=== PATIENT | male | born 1955 | race Caucasian/White ===

== ENCOUNTER 2019-04-16 10:55 | Inpatient (IN) | payer OTHER ==
--- NOTE | 2019-04-16 16:14 | BHS.RME ---
Substance Use & Tx History - Substance Use History Alcohol Substance amount: 2 pints vodka Frequency of use: Daily Substance route: Oral Date of Last Use: 04/16/19 (8 a.m.) - Last Treatment Date of last treatment: 1999 Treatment type: Substance Use Disorder ([place]) Where was last treatment: Detox (For cocaine, heroin, marijuana, alcohol) Physical/Psych/Mental Status - Behavior Eye Contact: Decreased - Cooperativeness Cooperativeness: Hostile - Thinking Perceptions: Hallucinations (auditory, visual, olfactory) (States hears things at night but unable to determine what is being said) - Physical Health Problems Is patient presently having any pain?: Yes (Generalized arthritis ) Does patient presently have any injuries (include location): No Does patient currently have a fever: No Is patient : No CIWA Nausea/Vomitin-No Nausea/No Vomiting Muscle Tremors: 4-Moderate,w/Arms Extend Anxiety: 3 Agitation: 2 Paroxysmal Sweats: 1-Minimal Palms Moist Orientation: 1-Uncertain about Date Tacttile Disturbances: 0-None Auditory Disturbances: 0-None Visual Disturbances: 0-None Headache: 0-None Present CIWA-Ar Total Score: 11
[2019-04-16 16:47] VITALS: BMI 27.8
--- NOTE | 2019-04-16 16:53 | HP ---
CIWA Score Nausea/Vomitin-No Nausea/No Vomiting Muscle Tremors: 4-Moderate,w/Arms Extend Anxiety: 3 Agitation: 2 Paroxysmal Sweats: 1-Minimal Palms Moist Orientation: 1-Uncertain about Date Tacttile Disturbances: 0-None Auditory Disturbances: 0-None Visual Disturbances: 0-None Headache: 0-None Present CIWA-Ar Total Score: 11 - Admission Criteria OASAS Guidelines: Admission for Medically Managed Detox: Requires at least one of the followin. CIWA greater than 12 2. Seizures within the past 24 hours 3. Delirium tremens within the past 24 hours 4. Hallucinations within the past 24 hours 5. Acute intervention needed for co occurring medical disorder 6. Acute intervention needed for co occurring psychiatric disorder 7. Severe withdrawal that cannot be handled at a lower level of care (continued vomiting, continued diarrhea, abnormal vital signs) requiring intravenous medication and/or fluids 8. Patient presents the following: Acute intervention needed for co-occurring med or psych disorder Admission Criteria Met: Admission criteria met Admission ROS S - HPI Chief Complaint: I am here because I don't want to drink anymore and I don't feel good Allergies/Adverse Reactions: Allergies Allergy/AdvReac Type Severity Reaction Status Date / Time No Known Allergies Allergy Verified 04/16/19 16:36 History of Present Illness: Patient is a 63 year old man with alcoholism who presents for detox from alcohol. Patient reports he went to [facility] yesterday for detox but they referred him to [facility]. Patient reports he has been having hallucinations; hears voices and sees people walking at night, he is unable to tell what the voices say. As per patient, this has been going on for a while, he was previously followed by psych but according to him, nothing was done. Patient has unstable gait and walks with a cane. Patient has risk for falls, fall prevention protocol implemented. On admission, his blood glucose level not registering on glucometer, insulin 12 units ordered. Exam Limitations: No Limitations - Ebola screening Have you traveled outside of the country in the last 21 days: No Have you had contact with anyone from an Ebola affected area: No Have you been sick,other than usual withdrawal symptoms: No Do you have a fever: No - Review of Systems Constitutional: Loss of Appetite, Night Sweats EENT: reports: Blurred Vision Respiratory: reports: SOB with Exertion Cardiac: reports: Edema GI: reports: Nausea, Poor Appetite, Poor Fluid Intake, Abdominal cramping : reports: No Symptoms Reported Musculoskeletal: reports: Back Pain, Joint Pain, Joint Swelling, Muscle Pain, Muscle Weakness Integumentary: reports: Sweating Neuro: reports: Numbness, Tremors, Weakness Endocrine: reports: No Symptoms Reported Hematology: reports: No Symptoms Reported Psychiatric: reports: Anxious, Depressed Other Systems: Reviewed and Negative Patient History - Patient Medical History Hx Anemia: No Hx Asthma: Yes Hx Chronic Obstructive Pulmonary Disease (COPD): No Hx Cancer: No Hx Cardiac Disorders: No Hx Congestive Heart Failure: No Hx Hypertension: Yes Hx Hypercholesterolemia: Yes Hx Pacemaker: No HX Cerebrovascular Accident: No Hx Seizures: No Hx Dementia: No Hx Diabetes: Yes Hx Gastrointestinal Disorders: No Hx Liver Disease: No Hx Genitourinary Disorders: No Hx Sexually Transmitted Disorders: No Hx Renal Disease (ESRD): No Hx Thyroid Disease: No Hx Human Immunodeficiency Virus (HIV): No Hx Hepatitis C: No Hx Depression: Yes Hx Suicide Attempt: Yes (remote hx) Hx Bipolar Disorder: Yes Hx Schizophrenia: No - Patient Surgical History Past Surgical History: No Hx Neurologic Surgery: No Hx Cataract Extraction: No Hx Cardiac Surgery: No Hx Lung Surgery: No Hx Breast Surgery: No Hx Breast Biopsy: No Hx Abdominal Surgery: Yes Hx Appendectomy: No Hx Cholecystectomy: Yes Hx Genitourinary Surgery: No Hx Orthopedic Surgery: Yes (left great toe amputation) Anesthesia Reaction: No - PPD History Previous Implant?: Yes Documented Results: Negative w/o proof Implanted On Prior R Admission?: No PPD to be Administered?: Yes - Smoking Cessation Smoking history: Former smoker Have you smoked in the past 12 months: No If you are a former smoker, when did you quit?: 15 years ago Hx Chewing Tobacco Use: No Initiated information on smoking cessation: No - Substances abused Alcohol Substance route: Oral Frequency: Daily Amount used: 2 PINTS Age of first use: 17 Date of last use: 04/16/19 Admission Physical Exam BHS - Vital Signs Vital Signs: Vital Signs - 24 hr 04/16/19 16:34 Temperature 97 F L Pulse Rate 102 H Respiratory 17 Rate Blood Pressure 147/90 - Physical General Appearance: Yes: Mild Distress HEENTM: Yes: Hearing grossly Normal, Normal Voice, Other (upper and lower dentures) Respiratory: Yes: Chest Non-Tender, Lungs Clear, No Accessory Muscle Use Neck: Yes: No masses,lesions,Nodules, Supple Breast: Yes: Breast Exam Deferred Cardiology: Yes: Regular Rhythm, Regular Rate Abdominal: Yes: Normal Bowel Sounds, Non Tender, Other (umbilical hernia) Genitourinary: Yes: Within Normal Limits Back: Yes: Decreased Range of Motion Musculoskeletal: Yes: Back pain, Joint swelling, Muscle Pain, Muscle weakness Extremities: Yes: Tremors, Pedal Edema, Swelling, Amputation Neurological: Yes: Fully Oriented, Alert, Normal Response, Numbness, Other (unsteady gait) Integumentary: Yes: Moist Lymphatic: Yes: Within Normal Limits - Diagnostic (1) Alcohol dependence, uncomplicated Current Visit: Yes Status: Acute (2) HTN (hypertension) Current Visit: Yes Status: Chronic Qualifiers: Hypertension type: essential hypertension Qualified Code(s): I10 - Essential (primary) hypertension (3) Diabetes Current Visit: Yes Status: Acute Qualifiers: Diabetes mellitus type: type 2 Diabetes mellitus manager terminal insulin use: with manager terminal use Diabetes mellitus complication status: with circulatory complication Diabetes mellitus complication detail: with other circulatory complications Qualified Code(s): E11.59 - Type 2 diabetes mellitus with other circulatory complications; Z79.4 - skilled nursing (current) use of insulin (4) Asthma Current Visit: Yes Status: Chronic Qualifiers: Asthma severity: mild Asthma persistence: intermittent (5) Umbilical hernia Current Visit: Yes Status: Chronic Qualifiers: Obstruction and gangrene presence: without obstruction or gangrene Qualified Code(s): K42.9 - Umbilical hernia without obstruction or gangrene (6) Need for assistance due to unsteady gait Current Visit: Yes Status: Chronic Cleared for Admission [facility] - Detox or Rehab [facility] Level of Care: Medically Managed Detox Regimen/Protocol: Librium Claeared for Rehab Admission: No Breathalyzer - Breathalyzer Breathalyzer: 0 Urine Drug Screen - Test Device Lot number: [id number] Expiration date: 01/07/21 - Control Is test valid?: Yes - Results Drug screen NEGATIVE: Yes Inpatient Rehab Admission - Rehab Decision to Admit Inpatient rehab admission?: No
[2019-04-16] MEDS ORDERED: BISMUTH SUBSALICYLATE 524 MG/30 ML UD PO PRN (17:09)
[2019-04-16] MEDS ORDERED: MAG HYDROX/AL HYDROX/SIMETH 30 ML UNIT-DOSE CUP PO PRN (17:09)
[2019-04-16] MEDS ORDERED: METHOCARBAMOL 500 MG TABLET PO PRN (17:09)
[2019-04-16] MEDS ORDERED: MAGNESIUM HYDROX 2400MG/30ML ORAL SUSPENSION 30 ML CUP PO PRN (17:09)
[2019-04-16] MEDS ORDERED: ONDANSETRON *ODT* 4 MG TABLET SL ONE (17:09)
[2019-04-16] MEDS ORDERED: MENTHOL/PHENOL 1 EACH UD MM PRN (17:09)
[2019-04-16] MEDS ORDERED: ACETAMINOPHEN 325 MG TABLET (FP) PO PRN ×2 (17:09)
[2019-04-16] MEDS ORDERED: IBUPROFEN 400 MG TABLET (FP) PO PRN (17:09)
[2019-04-16] MEDS ORDERED: chlordiazePOXIDE HCL 10 MG CAPSULE PO PRN (17:09)
[2019-04-16] MEDS ORDERED: MAGNESIUM CITRATE 300 ML BOTTLE PO PRN (17:09)
[2019-04-16] MEDS ORDERED: ALBUTEROL SO4 8 GM HFA INHALER IH SCH (17:15)
[2019-04-16] MEDS ORDERED: INSULIN (NOVOLOG) ASPART 100 UNITS/ML 10ML VIAL SQ ONE (17:27)
[2019-04-16] MEDS ORDERED: INSULIN SLIDING SCALE (NOVOLOG) 1 VIAL SQ ONE (18:11)
[2019-04-16] MEDS: hydrOXYzine PAMOATE 25 MG CAPSULE (FP) PO SCH ×2 (18:22→22:24)
[2019-04-16] MEDS: INSULIN SLIDING SCALE (NOVOLOG) 1 VIAL SQ SCH (21:32)
[2019-04-16] MEDS: INSULIN (LEVEMIR) 100 UNITS/ML UNITS SQ SCH (21:33)
[2019-04-16] MEDS: chlordiazePOXIDE HCL 25 MG CAPSULE PO SCH (22:24)
[2019-04-16] MEDS: THIAMINE HCL 100 MG TABLET (FP) PO SCH (22:24)
[2019-04-16] MEDS: MELATONIN 5 MG TABLETS PO SCH (22:24)
[2019-04-17] MEDS: hydrOXYzine PAMOATE 25 MG CAPSULE (FP) PO SCH ×5 (05:44→22:06)
[2019-04-17] MEDS: chlordiazePOXIDE HCL 25 MG CAPSULE PO SCH ×3 (05:44→22:06)
[2019-04-17] MEDS: INSULIN SLIDING SCALE (NOVOLOG) 1 VIAL SQ SCH ×4 (07:51→22:35)
--- NOTE | 2019-04-17 10:04 | PN ---
S CIWA - CIWA Score Nausea/Vomitin-Mild Nausea/No Vomiting Muscle Tremors: 2 Anxiety: 3 Agitation: 2 Paroxysmal Sweats: No Perspiration Orientation: 0-Oriented Tacttile Disturbances: 1-Very Mild Itch/Numbness Auditory Disturbances: 0-None Visual Disturbances: 0-None Headache: 2-Mild CIWA-Ar Total Score: 11 BHS Progress Note (SOAP) Subjective: alert,irritable,anxious,interrupted sleep,tremor,pain in the body and back,amb ulationwith cane Objective: 04/17/19 10:00 Vital Signs Temperature 97.5 F L 04/17/19 05:25 Pulse Rate 78 04/17/19 05:25 Respiratory Rate 18 04/17/19 05:25 Blood Pressure 139/93 04/17/19 05:25 O2 Sat by Pulse Oximetry (%) 04/17/19 10:00 Laboratory Last Values POC Glucometer 215 UNITS (80-120) 04/17/19 05:43 04/17/19 10:03 labs pending Assessment: 04/17/19 10:04 withdrawal symptom Plan: withdrawal symptom,continue detox leidy chatman,bgm monitoring
[2019-04-17 10:17] LABS: HEMATOCRIT 35.2 % (35.4-49); HEMOGLOBIN 11.9 GM/dL (11.7-16.9); MCH 30.6 pg (25.7-33.7); MCHC 33.7 g/dl (32.0-35.9); MEAN CELL VOLUME 90.8 fl (80-96); MEAN PLT VOLUME 9.9 fl (7.5-11.1); PLATELET COUNT 169 K/MM3 (134-434); RBC 3.88 M/mm3 (4.00-5.60); RDW 14.4 % (11.9-15.9); WHITE BLOOD COUNT 5.8 K/mm3 (4.0-10.0)
[2019-04-17 10:29] LABS: ALBUMIN 3.1 g/dl (3.4-5.0); BILIRUBIN,TOTAL 0.7 mg/dL (0.2-1); BLOOD UREA NITROGEN 14.7 mg/dL (7-18); CALCIUM 8.3 mg/dL (8.5-10.1); CREATININE 0.7 mg/dL (0.55-1.3); POTASSIUM 3.7 mmol/L (3.5-5.1); TOT PROT 6.7 g/dl (6.4-8.2)
[2019-04-17] MEDS: PRENATAL VITAMINS W/ FOLIC ACID TABLET (FP) PO SCH (11:19)
[2019-04-17] MEDS ORDERED: INSULIN SLIDING SCALE (NOVOLOG) 1 VIAL SQ ONE (11:39)
[2019-04-17] MEDS: INSULIN (NOVOLOG) ASPART 100 UNITS/ML 10ML VIAL SQ SCH ×3 (11:39→22:07)
[2019-04-17] MEDS ORDERED: PNEUMOC 13-VAL CONJ-DIP CRM/PF 0.5 ML DISP.SYRIN IM ONE (12:00)
[2019-04-17] MEDS ORDERED: PNEUMOCOCCAL 23 VACCINE 0.5 ML VIAL IM ONE (12:00)
[2019-04-17] MEDS ORDERED: FLU VACCINE QUAD 60 MCG/0.5 ML (MDV 19-20) IM ONE (12:00)
[2019-04-17] MEDS ORDERED: ALBUTEROL SO4 8 GM HFA INHALER IH PRN (13:59)
--- NOTE | 2019-04-17 14:17 | CONSULT ---
[facility] Psychiatric Consult - Data Date of interview: 04/17/19 Psychiatric History: Patient was approached at bedside. He told expert medical writer:"I cannot walk and I'm in a lot of pain". Please reconsult when patient is more appropriate for interview
[2019-04-17] MEDS: THIAMINE HCL 100 MG TABLET (FP) PO SCH (22:06)
[2019-04-17] MEDS: INSULIN (LEVEMIR) 100 UNITS/ML UNITS SQ SCH (22:07)
[2019-04-17] MEDS: MELATONIN 5 MG TABLETS PO SCH (22:34)
[2019-04-18] MEDS: hydrOXYzine PAMOATE 25 MG CAPSULE (FP) PO SCH ×5 (05:23→21:53)
[2019-04-18] MEDS: chlordiazePOXIDE 5 MG CAPSULE PO SCH ×3 (05:23→21:51)
[2019-04-18] MEDS: INSULIN SLIDING SCALE (NOVOLOG) 1 VIAL SQ SCH (08:02)
[2019-04-18] MEDS: INSULIN (NOVOLOG) ASPART 100 UNITS/ML 10ML VIAL SQ SCH ×4 (08:03→21:53)
--- NOTE | 2019-04-18 10:38 | PN ---
S CIWA - CIWA Score Nausea/Vomitin-Mild Nausea/No Vomiting Muscle Tremors: 1-None Visible, but [place] Anxiety: 2 Agitation: 2 Paroxysmal Sweats: No Perspiration Orientation: 0-Oriented Tacttile Disturbances: 1-Very Mild Itch/Numbness Auditory Disturbances: 0-None Visual Disturbances: 0-None Headache: 1-Very Mild CIWA-Ar Total Score: 8 BHS Progress Note (SOAP) Subjective: alert,irritable,anxious,interrupted sleep,tremor Objective: 04/18/19 10:36 Vital Signs Temperature 97.4 F L 04/18/19 06:24 Pulse Rate 92 H 04/18/19 06:24 Respiratory Rate 18 04/18/19 06:24 Blood Pressure 149/93 04/18/19 06:24 O2 Sat by Pulse Oximetry (%) Laboratory Last Values WBC 5.8 K/mm3 (4.0-10.0) 04/17/19 07:50 RBC 3.88 M/mm3 (4.00-5.60) L 04/17/19 07:50 Hgb 11.9 GM/dL (11.7-16.9) 04/17/19 07:50 Hct 35.2 % (35.4-49) L 04/17/19 07:50 MCV 90.8 fl (80-96) 04/17/19 07:50 MCH 30.6 pg (25.7-33.7) 04/17/19 07:50 MCHC 33.7 g/dl (32.0-35.9) 04/17/19 07:50 RDW 14.4 % (11.9-15.9) 04/17/19 07:50 Plt Count 169 K/MM3 (134-434) 04/17/19 07:50 MPV 9.9 fl (7.5-11.1) 04/17/19 07:50 Sodium 138 mmol/L (136-145) 04/17/19 07:50 Potassium 3.7 mmol/L (3.5-5.1) 04/17/19 07:50 Chloride 104 mmol/L (98-107) 04/17/19 07:50 Carbon Dioxide 27 mmol/L (21-32) 04/17/19 07:50 Anion Gap 6 MMOL/L (8-16) L 04/17/19 07:50 BUN 14.7 mg/dL (7-18) 04/17/19 07:50 Creatinine 0.7 mg/dL (0.55-1.3) 04/17/19 07:50 Est GFR (CKD-EPI)AfAm 117.22 04/17/19 07:50 Est GFR (CKD-EPI)NonAf 101.14 04/17/19 07:50 POC Glucometer 312 UNITS (80-120) 04/18/19 05:22 Random Glucose 233 mg/dL (74-106) H 04/17/19 07:50 Calcium 8.3 mg/dL (8.5-10.1) L 04/17/19 07:50 Total Bilirubin 0.7 mg/dL (0.2-1) 04/17/19 07:50 AST 16 U/L (15-37) 04/17/19 07:50 ALT 19 U/L (13-61) 04/17/19 07:50 Alkaline Phosphatase 81 U/L (45-117) 04/17/19 07:50 Total Protein 6.7 g/dl (6.4-8.2) 04/17/19 07:50 Albumin 3.1 g/dl (3.4-5.0) L 04/17/19 07:50 RPR Titer Nonreactive (NONREACTIVE) 04/17/19 07:50 Assessment: 04/18/19 10:37 withdrawal symptom Plan: continue detox librium regimen,bgm monitoring with insulin coverage sliding scale
[2019-04-18] MEDS: PRENATAL VITAMINS W/ FOLIC ACID TABLET (FP) PO SCH (11:42)
[2019-04-18] MEDS ORDERED: INSULIN SLIDING SCALE (NOVOLOG) 1 VIAL SQ ONE ×3 (11:47→21:47)
[2019-04-18] MEDS: THIAMINE HCL 100 MG TABLET (FP) PO SCH (21:51)
[2019-04-18] MEDS: INSULIN (LEVEMIR) 100 UNITS/ML UNITS SQ SCH (21:53)
[2019-04-18] MEDS: MELATONIN 5 MG TABLETS PO SCH (22:01)
[2019-04-19] MEDS ORDERED: chlordiazePOXIDE HCL 10 MG CAPSULE PO PRN
[2019-04-19] MEDS: chlordiazePOXIDE HCL 10 MG CAPSULE PO SCH ×3 (07:05→22:41)
[2019-04-19] MEDS: hydrOXYzine PAMOATE 25 MG CAPSULE (FP) PO SCH ×5 (07:05→22:43)
[2019-04-19] MEDS: INSULIN (NOVOLOG) ASPART 100 UNITS/ML 10ML VIAL SQ SCH ×4 (07:41→22:03)
[2019-04-19] MEDS: PRENATAL VITAMINS W/ FOLIC ACID TABLET (FP) PO SCH (11:04)
[2019-04-19] MEDS ORDERED: INSULIN SLIDING SCALE (NOVOLOG) 1 VIAL SQ ONE ×3 (11:08→22:01)
--- NOTE | 2019-04-19 11:44 | PN ---
S CIWA - CIWA Score Nausea/Vomitin-Mild Nausea/No Vomiting Muscle Tremors: 2 Anxiety: 1-Mildly Anxious Agitation: 0-Normal Activity Paroxysmal Sweats: No Perspiration Orientation: 1-Uncertain about Date Tacttile Disturbances: 0-None Auditory Disturbances: 0-None Visual Disturbances: 0-None Headache: 0-None Present CIWA-Ar Total Score: 5 BHS Progress Note (SOAP) Subjective: pt admitted for alcohol detox. Anticipate going to [facility]rehab tomorrow. No complaints today O: Vital Signs - 24 hr 04/18/19 04/18/19 04/19/19 16:35 20:55 05:25 Temperature 98.3 F 97.3 F L Pulse Rate 96 H 97 H 86 Respiratory 20 18 18 Rate Blood Pressure 133/94 130/70 147/99 04/19/19 08:39 Temperature 96.9 F L Pulse Rate 96 H Respiratory 16 Rate Blood Pressure 128/80 Laboratory Tests 04/16/19 04/16/19 04/17/19 17:23 21:20 05:43 WBC RBC Hgb Hct MCV MCH MCHC RDW Plt Count MPV Sodium Potassium Chloride Carbon Dioxide Anion Gap BUN Creatinine Est GFR (CKD-EPI)AfAm Est GFR (CKD-EPI)NonAf POC Glucometer > 600 450 215 Random Glucose Calcium Total Bilirubin AST ALT Alkaline Phosphatase Total Protein Albumin RPR Titer T.pallidum Ab Interpret 04/17/19 04/17/19 04/17/19 07:50 07:50 07:50 WBC 5.8 RBC 3.88 L Hgb 11.9 Hct 35.2 L MCV 90.8 MCH 30.6 MCHC 33.7 RDW 14.4 Plt Count 169 MPV 9.9 Sodium 138 Potassium 3.7 Chloride 104 Carbon Dioxide 27 Anion Gap 6 L BUN 14.7 Creatinine 0.7 Est GFR (CKD-EPI)AfAm 117.22 Est GFR (CKD-EPI)NonAf 101.14 POC Glucometer Random Glucose 233 H Calcium 8.3 L Total Bilirubin 0.7 AST 16 ALT 19 Alkaline Phosphatase 81 Total Protein 6.7 Albumin 3.1 L RPR Titer Nonreactive T.pallidum Ab Interpret 04/17/19 04/17/19 04/17/19 07:50 11:32 16:40 WBC RBC Hgb Hct MCV MCH MCHC RDW Plt Count MPV Sodium Potassium Chloride Carbon Dioxide Anion Gap BUN Creatinine Est GFR (CKD-EPI)AfAm Est GFR (CKD-EPI)NonAf POC Glucometer 300 318 Random Glucose Calcium Total Bilirubin AST ALT Alkaline Phosphatase Total Protein Albumin RPR Titer T.pallidum Ab Interpret Cancelled 04/17/19 04/18/19 04/18/19 21:29 05:22 11:38 WBC RBC Hgb Hct MCV MCH MCHC RDW Plt Count MPV Sodium Potassium Chloride Carbon Dioxide Anion Gap BUN Creatinine Est GFR (CKD-EPI)AfAm Est GFR (CKD-EPI)NonAf POC Glucometer 407 312 344 Random Glucose Calcium Total Bilirubin AST ALT Alkaline Phosphatase Total Protein Albumin RPR Titer T.pallidum Ab Interpret 04/18/19 04/18/19 04/19/19 16:43 21:27 07:15 WBC RBC Hgb Hct MCV MCH MCHC RDW Plt Count MPV Sodium Potassium Chloride Carbon Dioxide Anion Gap BUN Creatinine Est GFR (CKD-EPI)AfAm Est GFR (CKD-EPI)NonAf POC Glucometer 336 369 230 Random Glucose Calcium Total Bilirubin AST ALT Alkaline Phosphatase Total Protein Albumin RPR Titer T.pallidum Ab Interpret 04/19/19 10:58 WBC RBC Hgb Hct MCV MCH MCHC RDW Plt Count MPV Sodium Potassium Chloride Carbon Dioxide Anion Gap BUN Creatinine Est GFR (CKD-EPI)AfAm Est GFR (CKD-EPI)NonAf POC Glucometer 309 Random Glucose Calcium Total Bilirubin AST ALT Alkaline Phosphatase Total Protein Albumin RPR Titer T.pallidum Ab Interpret increased blood sugars a/p: AUD- continue detox protocol DM- pt on basal insulin and NPH/regular insulin prior to meals Anticipate discharge tomorrow
[2019-04-19] MEDS: MELATONIN 5 MG TABLETS PO SCH (22:03)
[2019-04-19] MEDS: INSULIN (LEVEMIR) 100 UNITS/ML UNITS SQ SCH (22:03)
[2019-04-19] MEDS: THIAMINE HCL 100 MG TABLET (FP) PO SCH (22:43)
[2019-04-20] MEDS ORDERED: chlordiazePOXIDE HCL 10 MG CAPSULE PO ONE (05:00)
[2019-04-20] MEDS: hydrOXYzine PAMOATE 25 MG CAPSULE (FP) PO SCH ×2 (07:12→11:07)
[2019-04-20] MEDS ORDERED: INSULIN SLIDING SCALE (NOVOLOG) 1 VIAL SQ ONE (07:14)
[2019-04-20] MEDS: INSULIN (NOVOLOG) ASPART 100 UNITS/ML 10ML VIAL SQ SCH ×2 (07:18→11:10)
[2019-04-20 07:29] VITALS: BP 126/87; PULSE 100; TEMP 98.2
--- NOTE | 2019-04-20 08:46 | DS ---
[facility] Detox Discharge Summary Admission Date: 04/16/19 Discharge Date: 04/20/19 - History Present History: Alcohol Dependence - Physical Exam Results Vital Signs: Vital Signs Temperature 98.2 F 04/20/19 05:24 Pulse Rate 100 H 04/20/19 05:24 Respiratory Rate 18 04/20/19 05:24 Blood Pressure 126/87 04/20/19 05:24 O2 Sat by Pulse Oximetry (%) Pertinent Admission Physical Exam Findings: Vital Signs Temperature 98.2 F 04/20/19 05:24 Pulse Rate 100 H 04/20/19 05:24 Respiratory Rate 18 04/20/19 05:24 Blood Pressure 126/87 04/20/19 05:24 O2 Sat by Pulse Oximetry (%) Laboratory Tests 04/16/19 04/16/19 04/17/19 17:23 21:20 05:43 WBC RBC Hgb Hct MCV MCH MCHC RDW Plt Count MPV Sodium Potassium Chloride Carbon Dioxide Anion Gap BUN Creatinine Est GFR (CKD-EPI)AfAm Est GFR (CKD-EPI)NonAf POC Glucometer > 600 450 215 Random Glucose Calcium Total Bilirubin AST ALT Alkaline Phosphatase Total Protein Albumin RPR Titer T.pallidum Ab Interpret 04/17/19 04/17/19 04/17/19 07:50 07:50 07:50 WBC 5.8 RBC 3.88 L Hgb 11.9 Hct 35.2 L MCV 90.8 MCH 30.6 MCHC 33.7 RDW 14.4 Plt Count 169 MPV 9.9 Sodium 138 Potassium 3.7 Chloride 104 Carbon Dioxide 27 Anion Gap 6 L BUN 14.7 Creatinine 0.7 Est GFR (CKD-EPI)AfAm 117.22 Est GFR (CKD-EPI)NonAf 101.14 POC Glucometer Random Glucose 233 H Calcium 8.3 L Total Bilirubin 0.7 AST 16 ALT 19 Alkaline Phosphatase 81 Total Protein 6.7 Albumin 3.1 L RPR Titer Nonreactive T.pallidum Ab Interpret 04/17/19 04/17/19 04/17/19 07:50 11:32 16:40 WBC RBC Hgb Hct MCV MCH MCHC RDW Plt Count MPV Sodium Potassium Chloride Carbon Dioxide Anion Gap BUN Creatinine Est GFR (CKD-EPI)AfAm Est GFR (CKD-EPI)NonAf POC Glucometer 300 318 Random Glucose Calcium Total Bilirubin AST ALT Alkaline Phosphatase Total Protein Albumin RPR Titer T.pallidum Ab Interpret Cancelled 04/17/19 04/18/19 04/18/19 21:29 05:22 11:38 WBC RBC Hgb Hct MCV MCH MCHC RDW Plt Count MPV Sodium Potassium Chloride Carbon Dioxide Anion Gap BUN Creatinine Est GFR (CKD-EPI)AfAm Est GFR (CKD-EPI)NonAf POC Glucometer 407 312 344 Random Glucose Calcium Total Bilirubin AST ALT Alkaline Phosphatase Total Protein Albumin RPR Titer T.pallidum Ab Interpret 04/18/19 04/18/19 04/19/19 16:43 21:27 07:15 WBC RBC Hgb Hct MCV MCH MCHC RDW Plt Count MPV Sodium Potassium Chloride Carbon Dioxide Anion Gap BUN Creatinine Est GFR (CKD-EPI)AfAm Est GFR (CKD-EPI)NonAf POC Glucometer 336 369 230 Random Glucose Calcium Total Bilirubin AST ALT Alkaline Phosphatase Total Protein Albumin RPR Titer T.pallidum Ab Interpret 04/19/19 04/19/19 04/19/19 10:58 16:27 21:57 WBC RBC Hgb Hct MCV MCH MCHC RDW Plt Count MPV Sodium Potassium Chloride Carbon Dioxide Anion Gap BUN Creatinine Est GFR (CKD-EPI)AfAm Est GFR (CKD-EPI)NonAf POC Glucometer 309 437 442 Random Glucose Calcium Total Bilirubin AST ALT Alkaline Phosphatase Total Protein Albumin RPR Titer T.pallidum Ab Interpret 04/20/19 07:09 WBC RBC Hgb Hct MCV MCH MCHC RDW Plt Count MPV Sodium Potassium Chloride Carbon Dioxide Anion Gap BUN Creatinine Est GFR (CKD-EPI)AfAm Est GFR (CKD-EPI)NonAf POC Glucometer 410 Random Glucose Calcium Total Bilirubin AST ALT Alkaline Phosphatase Total Protein Albumin RPR Titer T.pallidum Ab Interpret aaox3 ambulating no acute distress lungs CTA - Treatment Hospital Course: Detox Protocol Followed, Detoxed Safely, Responded well, Discharged Condition Good, Rehab Referral Accepted - Medication Discharge Medications: Ambulatory Orders Albuterol Sulfate Inhaler - [Ventolin HFA Inhaler -] 1 puff IH PRN #1 inhaler 04/19/19 Insulin Glargine,Hum.rec.anlog [Lantus] 50 unit SQ HS #1 vial 04/19/19 Insulin NPH Hum/Reg Insulin Hm [Humulin 70-30 Vial] 15 unit SQ AC #1 vial 04/19/19 - Diagnosis (1) Alcohol dependence, uncomplicated Current Visit: Yes Status: Chronic (2) Diabetes Current Visit: Yes Status: Chronic Qualifiers: Diabetes mellitus type: type 2 Diabetes mellitus terminologist insulin use: with terminologist use Diabetes mellitus complication status: with circulatory co mplication Diabetes mellitus complication detail: with other circulatory complications Qualified Code(s): E11.59 - Type 2 diabetes mellitus with other circulatory complications; Z79.4 - termite control representative (current) use of insulin (3) Asthma Current Visit: Yes Status: Chronic Qualifiers: Asthma severity: mild Asthma persistence: intermittent (4) HTN (hypertension) Current Visit: Yes Status: Chronic Qualifiers: Hypertension type: essential hypertension Qualified Code(s): I10 - Essential (primary) hypertension (5) Need for assistance due to unsteady gait Current Visit: Yes Status: Chronic (6) Umbilical hernia Current Visit: Yes Status: Chronic Qualifiers: Obstruction and gangrene presence: without obstruction or gangrene Qualified Code(s): K42.9 - Umbilical hernia without obstruction or gangrene - AMA Did Patient Leave Against Medical Advice: No
[2019-04-20] MEDS: PRENATAL VITAMINS W/ FOLIC ACID TABLET (FP) PO SCH (11:06)
== END 2019-04-20 11:10 | disposition home or self-care (01) | DRG 775 ==
LOC: YASAS 10:55 → Y6N 17:26
PROVIDERS: ADMIT Allergy & Immunology; ATTEND Allergy & Immunology
PROC: HZ2ZZZZ Detoxification Services for Substance Abuse Treatment (ICD-10-PCS; principal; 2019-04-16)
DX: F10.230 Alcohol dependence with withdrawal, uncomplicated (principal); F31.9 Bipolar disorder, unspecified; I10 Essential (primary) hypertension; J45.20 Mild intermittent asthma, uncomplicated; K42.9 Umbilical hernia without obstruction or gangrene; E11.59 Type 2 diabetes mellitus with other circulatory complications; Z79.4 Long term (current) use of insulin; R26.89 Other abnormalities of gait and mobility; Z89.412 Acquired absence of left great toe; Z91.5 Personal history of self-harm
CPT/HCPCS: 36415; 80053; 82962; 85027; 86593; Q2036